=== PATIENT | male | born 1950 | race Caucasian/White ===

== ENCOUNTER 2023-06-26 08:43 | Inpatient (IN) | payer OTHER ==
[~2023-06-26] VITALS: Ht 167.6 cm; Wt 81.6 kg
[2023-06-26] MEDS ORDERED: cefOXitin SODIUM 2 GM in D5W 100 ML IV ONE (09:00)
[2023-06-26] MEDS ORDERED: fentaNYL CITRATE/PF 100 MCG/2 ML AMP ONE (09:45)
[2023-06-26] MEDS ORDERED: ACETAMINOPHEN I.V. 1000 MG 100 ML IV ONE (09:51)
[2023-06-26] MEDS ORDERED: ROPIVACAINE HCL/PF 0.2% 100 ML ONE (09:51)
[2023-06-26] MEDS ORDERED: PROPOFOL 200MG/ 20ML VIAL (DIPRIVAN) IV ONE (09:56)
[2023-06-26] MEDS ORDERED: LIDOCAINE 2%, 20 ML MDV ONE (09:56)
[2023-06-26] MEDS ORDERED: METOCLOPRAMIDE HCL 10 MG/2 ML VIAL ONE (09:56)
[2023-06-26] MEDS ORDERED: NS 1000 ML IV.SOLN IV ONE (09:56)
[2023-06-26] MEDS ORDERED: WATER FOR IRRIGATION,STERILE 1,000 ML IRRIG.SOLN IR ONE (09:56)
[2023-06-26] MEDS ORDERED: NS 100 ML BAG ONE (09:56)
[2023-06-26] MEDS ORDERED: ROCURONIUM BROMIDE 10 MG/ML (ZEMURON) ONE (09:56)
[2023-06-26] MEDS ORDERED: ONDANSETRON HCL 4 MG/2 ML VIAL ONE (09:56)
[2023-06-26] MEDS ORDERED: BUPIVACAINE LIPOSOME/PF 266 MG/20 ML VIAL INFIL ONE (10:51)
[2023-06-26] MEDS ORDERED: ONDANSETRON HCL 4 MG/2 ML VIAL IVP PRN ×2 (11:00→12:15)
[2023-06-26] MEDS ORDERED: fentaNYL CITRATE/PF 100 MCG/2 ML AMP IVP PRN (11:00)
[2023-06-26] MEDS ORDERED: NALOXONE HCL 0.4 MG/ML AMP (NARCAN) IVP PRN ×5 (11:00→12:15)
[2023-06-26] MEDS ORDERED: HYDROmorphone 1 MG/ML INJ. CARTRIDGE IVP PRN (11:00)
[2023-06-26] MEDS ORDERED: LR 1,000 ML IV ONE (11:00)
[2023-06-26] MEDS ORDERED: ATOR10TA68 PO (11:38)
[2023-06-26] MEDS ORDERED: METF-379 PO (11:38)
[2023-06-26] MEDS ORDERED: SYN50 PO (11:38)
[2023-06-26] MEDS ORDERED: ACETAMINOPHEN 325 MG TABLET PO PRN (12:15)
[2023-06-26] MEDS ORDERED: HYDROcodone/ACETAMIN 5-325 MG TAB (NORCO/ VICODIN) PO PRN (12:15)
[2023-06-26 12:40] LABS: HEMATOCRIT 45.8 % (36-54); HEMOGLOBIN 14.8 g/dL (14.0-18.0)
[2023-06-26 12:58] LABS: ANION GAP 9 (5-15); CALCIUM 8.8 mg/dL (8.4-11.0); CARBON DIOXIDE 25 mmol/L (23-29); CHLORIDE 106 mmol/L (98-107); CREATININE 1.32 mg/dL (0.55-1.30); GLUCOSE 175 mg/dL (74-106); POTASSIUM 4.2 mmol/L (3.5-5.1); SODIUM SERUM 140 mmol/L (136-145); UREA NITROGEN, BLOOD 21 mg/dL (8-21)
[2023-06-26] MEDS ORDERED: HYDROmorphone 1 MG/ML INJ. CARTRIDGE ONE (13:33)
[2023-06-26 14:15] VITALS: BP_SYST 141; PULSE 64; RESP 20; TEMP 97.6; O2SAT 94
[2023-06-26] MEDS: HYDROmorphone 1 MG/ML INJ. CARTRIDGE IVP PRN ×2 (14:37→21:23)
[2023-06-26 16:12] VITALS: O2SAT 94
[2023-06-26 17:00] VITALS: BP_SYST 119; PULSE 68; RESP 18; TEMP 98; O2SAT 92
[2023-06-26] MEDS: METOCLOPRAMIDE HCL 10 MG/2 ML VIAL IVP SCH (17:51)
[2023-06-26] MEDS: D5/0.45 NS 1,000 ML IV SCH ×2 (17:59→21:21)
[2023-06-26 20:00] VITALS: BP_SYST 108; PULSE 90; RESP 18; TEMP 98.4; O2SAT 94
[2023-06-26] MEDS: FAMOTIDINE PF 20 MG/2 ML VIAL IVP SCH (21:21)
[2023-06-26] MEDS: cefOXitin SODIUM 2 GM in D5W 100 ML IV SCH (21:21)
[2023-06-26 23:00] VITALS: BP_SYST 82; PULSE 90; RESP 22; O2SAT 96
[2023-06-26 23:21] LABS: HEMATOCRIT 38.9 % (36-54); HEMOGLOBIN 12.4 g/dL (14.0-18.0); INR 1.1 (0.80-1.20); PROTHROMBIN TIME 11.2 SECS (9.5-12.5)
[2023-06-27] VITALS (23 sets, daily range): BP systolic 73–115; PULSE 74–102; RESP 15–28; TEMP 98–99.2; O2SAT 93–98
[2023-06-27] MEDS: METOCLOPRAMIDE HCL 10 MG/2 ML VIAL IVP SCH ×5 (00:27→23:30)
[2023-06-27 05:45] LABS: BASOPHILS % (AUTO) 0.2 % (0.0-2.0); HEMATOCRIT 36.6 % (36-54); HEMOGLOBIN 11.9 g/dL (14.0-18.0); LYMPHOCYTES # (AUTO) 1.1 K/uL (1.0-5.5); LYMPHOCYTES % (AUTO) 13.9 % (20.5-51.5); MEAN CORPUSCULAR HEMOGLOBIN 29 pg (27-31); MEAN CORPUSCULAR HGB CONC 33 % (32-36); MEAN CORPUSCULAR VOLUME 90 fL (79.0-98.0); MONOCYTES # (AUTO) 0.6 K/uL (0.0-1.0); NEUTROPHILS # (AUTO) 5.9 K/uL (1.8-7.7); NEUTROPHILS % (AUTO) 77.9 % (40.0-70.0); PLATELET COUNT (AUTO) 151 K/uL (130-430); RED BLOOD CELL COUNT(AUTO) 4.06 MIL/uL (4.2-6.2); RED CELL DISTRIBUTION WIDTH 13.8 % (9.0-15.0); WHITE BLOOD COUNT (AUTO) 7.6 K/uL (4.8-10.8)
[2023-06-27 06:29] LABS: ALANINE AMINOTRANSFERASE 20 U/L (12-78); ALBUMIN 2.7 g/dL (3.4-4.8); ANION GAP 11 (5-15); ASPARTATE AMINOTRANSFERASE 13 U/L (10-37); CALCIUM 7.5 mg/dL (8.4-11.0); CARBON DIOXIDE 20 mmol/L (23-29); CHLORIDE 110 mmol/L (98-107); CREATININE 1.48 mg/dL (0.55-1.30); GLUCOSE 224 mg/dL (74-106); SODIUM SERUM 141 mmol/L (136-145); TOTAL BILIRUBIN 1.2 mg/dL (0.0-1.0); TOTAL PROTEIN, SERUM 5.3 g/dL (6.4-8.3); UREA NITROGEN, BLOOD 25 mg/dL (8-21)
[2023-06-27] MEDS ORDERED: ENOXAPARIN SODIUM 30 MG/0.3 ML SYRINGE SUBCUT SCH (09:00)
[2023-06-27] MEDS: ALBUMIN HUMAN 25% 50 ML IV SCH ×2 (09:30→12:45)
[2023-06-27] MEDS: FAMOTIDINE PF 20 MG/2 ML VIAL IVP SCH ×2 (09:31→20:38)
[2023-06-27] MEDS: cefOXitin SODIUM 2 GM in D5W 100 ML IV SCH (09:31)
[2023-06-27 10:05] LABS: BASOPHILS % (AUTO) 0.2 % (0.0-2.0); HEMATOCRIT 32.6 % (36-54); HEMOGLOBIN 10.6 g/dL (14.0-18.0); LYMPHOCYTES # (AUTO) 1.2 K/uL (1.0-5.5); LYMPHOCYTES % (AUTO) 16.2 % (20.5-51.5); MEAN CORPUSCULAR HEMOGLOBIN 29 pg (27-31); MEAN CORPUSCULAR HGB CONC 32 % (32-36); MEAN CORPUSCULAR VOLUME 90 fL (79.0-98.0); MONOCYTES # (AUTO) 0.6 K/uL (0.0-1.0); MONOCYTES % (AUTO) 8.6 % (1.7-9.3); NEUTROPHILS # (AUTO) 5.4 K/uL (1.8-7.7); PLATELET COUNT (AUTO) 135 K/uL (130-430); RED BLOOD CELL COUNT(AUTO) 3.61 MIL/uL (4.2-6.2); RED CELL DISTRIBUTION WIDTH 13.7 % (9.0-15.0); WHITE BLOOD COUNT (AUTO) 7.2 K/uL (4.8-10.8)
[2023-06-27] MEDS: D5/0.45 NS 1,000 ML IV SCH (13:03)
[2023-06-27] MEDS: HYDROcodone/ACETAMIN 5-325 MG TAB (NORCO/ VICODIN) PO PRN (14:34)
[2023-06-27 22:09] LABS: BASOPHILS % (AUTO) 0.4 % (0.0-2.0); EOSINOPHILS % (AUTO) 0.1 % (0.0-4.0); HEMATOCRIT 30.1 % (36-54); HEMOGLOBIN 9.8 g/dL (14.0-18.0); LYMPHOCYTES # (AUTO) 1.5 K/uL (1.0-5.5); LYMPHOCYTES % (AUTO) 25.6 % (20.5-51.5); MEAN CORPUSCULAR HEMOGLOBIN 29 pg (27-31); MEAN CORPUSCULAR HGB CONC 33 % (32-36); MEAN CORPUSCULAR VOLUME 89 fL (79.0-98.0); MONOCYTES # (AUTO) 0.5 K/uL (0.0-1.0); MONOCYTES % (AUTO) 8.8 % (1.7-9.3); NEUTROPHILS # (AUTO) 3.8 K/uL (1.8-7.7); NEUTROPHILS % (AUTO) 65.1 % (40.0-70.0); PLATELET COUNT (AUTO) 101 K/uL (130-430); RED BLOOD CELL COUNT(AUTO) 3.39 MIL/uL (4.2-6.2); RED CELL DISTRIBUTION WIDTH 13.7 % (9.0-15.0); WHITE BLOOD COUNT (AUTO) 5.8 K/uL (4.8-10.8)
[2023-06-28] VITALS (21 sets, daily range): BP systolic 93–129; PULSE 69–89; RESP 15–28; TEMP 97.2–98.4; O2SAT 94–100
[2023-06-28 04:25] LABS: BASOPHILS % (AUTO) 0.3 % (0.0-2.0); EOSINOPHILS % (AUTO) 0.1 % (0.0-4.0); HEMATOCRIT 29.8 % (36-54); HEMOGLOBIN 9.7 g/dL (14.0-18.0); LYMPHOCYTES # (AUTO) 1.4 K/uL (1.0-5.5); LYMPHOCYTES % (AUTO) 23.8 % (20.5-51.5); MEAN CORPUSCULAR HEMOGLOBIN 29 pg (27-31); MEAN CORPUSCULAR HGB CONC 33 % (32-36); MEAN CORPUSCULAR VOLUME 89 fL (79.0-98.0); MONOCYTES # (AUTO) 0.5 K/uL (0.0-1.0); MONOCYTES % (AUTO) 8.6 % (1.7-9.3); NEUTROPHILS % (AUTO) 67.2 % (40.0-70.0); PLATELET COUNT (AUTO) 104 K/uL (130-430); RED BLOOD CELL COUNT(AUTO) 3.36 MIL/uL (4.2-6.2); RED CELL DISTRIBUTION WIDTH 13.8 % (9.0-15.0); WHITE BLOOD COUNT (AUTO) 5.9 K/uL (4.8-10.8)
[2023-06-28 04:48] LABS: ANION GAP 5 (5-15); CALCIUM 7.9 mg/dL (8.4-11.0); CARBON DIOXIDE 25 mmol/L (23-29); CHLORIDE 105 mmol/L (98-107); CREATININE 0.97 mg/dL (0.55-1.30); GLUCOSE 198 mg/dL (74-106); POTASSIUM 3.8 mmol/L (3.5-5.1); SODIUM SERUM 135 mmol/L (136-145); UREA NITROGEN, BLOOD 18 mg/dL (8-21)
[2023-06-28] MEDS: METOCLOPRAMIDE HCL 10 MG/2 ML VIAL IVP SCH ×3 (05:08→17:46)
[2023-06-28] MEDS: D5/0.45 NS 1,000 ML IV SCH ×4 (05:13→21:07)
[2023-06-28] MEDS: FAMOTIDINE PF 20 MG/2 ML VIAL IVP SCH ×2 (08:45→21:03)
[2023-06-28] MEDS: HYDROcodone/ACETAMIN 5-325 MG TAB (NORCO/ VICODIN) PO PRN (13:07)
[2023-06-28] MEDS: traMADol HCL HCL 50 MG TABLET (ULTRAM) PO SCH (17:48)
[2023-06-29] VITALS (7 sets, daily range): BP systolic 113–135; PULSE 68–85; RESP 16–20; TEMP 97.1–97.6; O2SAT 94–99
[2023-06-29] MEDS: METOCLOPRAMIDE HCL 10 MG/2 ML VIAL IVP SCH ×4 (00:22→18:02)
[2023-06-29] MEDS: traMADol HCL HCL 50 MG TABLET (ULTRAM) PO SCH ×3 (00:22→12:00)
[2023-06-29 04:26] LABS: BASOPHILS % (AUTO) 0.3 % (0.0-2.0); EOSINOPHILS # (AUTO) 0.1 K/uL (0.0-0.4); EOSINOPHILS % (AUTO) 1.7 % (0.0-4.0); HEMOGLOBIN 8.9 g/dL (14.0-18.0); LYMPHOCYTES # (AUTO) 1.6 K/uL (1.0-5.5); LYMPHOCYTES % (AUTO) 32.9 % (20.5-51.5); MEAN CORPUSCULAR HEMOGLOBIN 29 pg (27-31); MEAN CORPUSCULAR HGB CONC 33 % (32-36); MEAN CORPUSCULAR VOLUME 89 fL (79.0-98.0); MONOCYTES # (AUTO) 0.4 K/uL (0.0-1.0); MONOCYTES % (AUTO) 8.5 % (1.7-9.3); NEUTROPHILS # (AUTO) 2.7 K/uL (1.8-7.7); NEUTROPHILS % (AUTO) 56.6 % (40.0-70.0); PLATELET COUNT (AUTO) 104 K/uL (130-430); RED BLOOD CELL COUNT(AUTO) 3.04 MIL/uL (4.2-6.2); RED CELL DISTRIBUTION WIDTH 13.4 % (9.0-15.0); WHITE BLOOD COUNT (AUTO) 4.8 K/uL (4.8-10.8)
[2023-06-29 04:39] LABS: ALANINE AMINOTRANSFERASE 16 U/L (12-78); ALBUMIN 2.6 g/dL (3.4-4.8); ANION GAP 5 (5-15); ASPARTATE AMINOTRANSFERASE 14 U/L (10-37); CALCIUM 7.9 mg/dL (8.4-11.0); CARBON DIOXIDE 27 mmol/L (23-29); CHLORIDE 105 mmol/L (98-107); CREATININE 0.76 mg/dL (0.55-1.30); GLUCOSE 164 mg/dL (74-106); POTASSIUM 3.8 mmol/L (3.5-5.1); SODIUM SERUM 137 mmol/L (136-145); TOTAL BILIRUBIN 0.5 mg/dL (0.0-1.0); TOTAL PROTEIN, SERUM 5.3 g/dL (6.4-8.3); UREA NITROGEN, BLOOD 10 mg/dL (8-21)
[2023-06-29] MEDS: FAMOTIDINE PF 20 MG/2 ML VIAL IVP SCH (09:29)
[2023-06-29] MEDS: D5/0.45 NS 1,000 ML IV SCH (12:09)
[2023-06-29 17:43] LABS: BASOPHILS % (AUTO) 0.6 % (0.0-2.0); EOSINOPHILS # (AUTO) 0.1 K/uL (0.0-0.4); EOSINOPHILS % (AUTO) 2.5 % (0.0-4.0); HEMATOCRIT 31.7 % (36-54); HEMOGLOBIN 10.7 g/dL (14.0-18.0); LYMPHOCYTES # (AUTO) 1.4 K/uL (1.0-5.5); LYMPHOCYTES % (AUTO) 25.6 % (20.5-51.5); MEAN CORPUSCULAR HEMOGLOBIN 30 pg (27-31); MEAN CORPUSCULAR HGB CONC 34 % (32-36); MEAN CORPUSCULAR VOLUME 88 fL (79.0-98.0); MONOCYTES # (AUTO) 0.4 K/uL (0.0-1.0); MONOCYTES % (AUTO) 7.4 % (1.7-9.3); NEUTROPHILS # (AUTO) 3.4 K/uL (1.8-7.7); NEUTROPHILS % (AUTO) 63.9 % (40.0-70.0); PLATELET COUNT (AUTO) 127 K/uL (130-430); RED CELL DISTRIBUTION WIDTH 13.7 % (9.0-15.0); WHITE BLOOD COUNT (AUTO) 5.3 K/uL (4.8-10.8)
== END 2023-06-29 19:00 | disposition home or self-care (01) | DRG 329 ==
LOC: SMU 08:43 → SIC 22:38 → STU 06-28 19:06 → SMU 06-29 11:32
PROVIDERS: ADMIT Colon & Rectal Surgery; ATTEND Specialist
PROC: 30233N1 Transfusion of Nonautologous Red Blood Cells into Peripheral Vein, Percutaneous Approach (ICD-10-PCS; 2023-06-26)
PROC: 0DTF0ZZ Resection of Right Large Intestine, Open Approach (ICD-10-PCS; principal; 2023-06-26 09:56)
DX: K63.5 Polyp of colon (principal); N17.0 Acute kidney failure with tubular necrosis; E44.0 Moderate protein-calorie malnutrition; I95.81 Postprocedural hypotension; Y83.8 Other surgical procedures as the cause of abnormal reaction of the patient, or of later complication, without mention of misadventure at the time of the procedure; Y82.8 Other medical devices associated with adverse incidents; Y92.89 Other specified places as the place of occurrence of the external cause; D69.9 Hemorrhagic condition, unspecified; Z68.29 Body mass index [BMI] 29.0-29.9, adult
CPT/HCPCS: 36415; 80048; 80053; 82962; 85018; 85025; 85610-TC; 85730-TC; 86886; 86900; 86901; 86920; 87081; 88307; 97110-GP; 97116-GP; 97530-GP; C1727; C9290; G0378; J0131; J0694; J1170; J1650; J2001; J2405; J2704; J2765; J2795; J3010; J3490; J7030; J7060; P9021; P9046